=== PATIENT | male | born 1970 | race American Indian/Alaskan Native ===

== ENCOUNTER 2019-08-07 11:50 | Emergency (ER) | payer OTHER ==
[2019-08-07 12:06] VITALS: BP 184/106
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
[2019-08-07] MEDS ORDERED: HYDROcodone/ACETAMINOPHEN 10-325MG TAB PO ONE (13:03)
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
== END 2019-08-07 14:53 | disposition left against medical advice (07) ==
LOC: ED 11:50
DX: S39.012A Strain of muscle, fascia and tendon of lower back, initial encounter (principal); I63.519 Cerebral infarction due to unspecified occlusion or stenosis of unspecified middle cerebral artery; I10 Essential (primary) hypertension; V89.2XXA Person injured in unspecified motor-vehicle accident, traffic, initial encounter; Y93.89 Activity, other specified; Y92.488 Other paved roadways as the place of occurrence of the external cause; Y99.8 Other external cause status
CPT/HCPCS: 70450; 72100; 99284